=== PATIENT | female | born 1970 | race Caucasian/White ===

== ENCOUNTER → 2019-07-15 | Outpatient (CLI) | payer BC ==
--- NOTE | 2019-07-15 16:22 | REP ---
Clinical: Fever. Technique: PA and lateral. Comparison: None. Findings: Bibasilar atelectasis/early infiltrates suspected. No effusion. No pneumothorax. Mediastinum and cardiac silhouette normal. Skeletal structures intact. Impression: Bibasilar atelectasis and early infiltrates suggested. Electronically Signed by Donnell Rosales MD 07/15/2019 04:13 P
== END ==
LOC: M ADAMS 16:01
PROVIDERS: ATTEND Physician Assistant
DX: R05 Cough (principal); R50.9 Fever, unspecified

== ENCOUNTER 2022-04-01 12:47 | Emergency (ER) | payer BC, SELFPAY ==
[~2022-04-01] VITALS: Ht 165.1 cm; Wt 77.3 kg
[2022-04-01 12:47] VITALS: BP 140/91
[2022-04-01] MEDS ORDERED: BUDE10.2 (13:34)
[2022-04-01] MEDS ORDERED: LOSA100T5 (13:34)
[2022-04-01] MEDS ORDERED: CLAR10CA3 PO (13:34)
[2022-04-01] MEDS ORDERED: NAPR220C14 PO (13:34)
== END 2022-04-01 18:03 | disposition left against medical advice (07) ==
LOC: M ED 12:47
DX: Z53.21 Procedure and treatment not carried out due to patient leaving prior to being seen by health care provider (principal)